=== PATIENT | female | born 1985 | race Caucasian/White ===

== ENCOUNTER 2017-06-07 15:37 | Emergency (ER) | payer SELFPAY ==
[~2017-06-07] VITALS: Ht 162.6 cm; Wt 60.7 kg
[2017-06-07 16:23] LABS: HEMATOCRIT 43.4 % (36.0-46.0); HEMOGLOBIN 15.1 G/DL (11.9-15.5); MCH 30.6 PG (29.0-34.0); MCHC 34.8 G/DL (30.0-36.0); MCV 87.9 FL (83-99); PLATELET COUNT 293 K/uL (156-360); RBC DIS.WIDTH-CV 12.6 % (11.8-14.6); RBC DIS.WIDTH-SD 40.5 % (39-53); RED BLOOD COUNT 4.94 M/uL (3.80-5.20)
[2017-06-07 16:34] LABS: ALBUMIN 4.2 g/dL (3.2-4.8); CHLORIDE 102 mEq/L (99-109); POTASSIUM 3.4 mEq/L (3.7-5.4); SODIUM 137 mEq/L (136-147)
[2017-06-07 16:37] LABS: GLUCOSE 99 mg/dL (70-99); TOTAL PROTEIN 7.4 g/dL (6.4-8.3)
[2017-06-07 16:39] LABS: TOTAL BILIRUBIN 0.5 mg/dL (0.0-1.0)
[2017-06-07 16:40] LABS: ALKALINE PHOSPHATASE 88 IU/L (3-129); CREATININE 0.8 mg/dL (0.6-1.3); GFR ESTIMATE (CALCULATED) > 59 mL/min/
[2017-06-07 16:41] LABS: APPEARANCE SL.HAZY ((CLEAR)); BILIRUBIN NEGATIVE; BLOOD SMALL; COLOR YELLOW ((YELLOW)); GLUCOSE (STRIP) NEGATIVE; KETONES 20; LEUKOCYTES NEGATIVE; NITRITE NEGATIVE; PROTEIN (STRIP) 30; SPECIFIC GRAVITY 1.024 (1.000-1.030); UROBILINOGEN 0.2 MG/DL (0.2-1.0)
[2017-06-07 16:41] LABS: UREA NITROGEN (BUN) 16 mg/dL (9-23)
[2017-06-07 16:42] LABS: AST (GOT) 14 IU/L (2-34)
[2017-06-07 16:43] LABS: ALT (GPT) 11 IU/L (3-49)
[2017-06-07 16:44] LABS: LIPASE 24 U/L (1.0-51.0)
[2017-06-07 16:50] LABS: BACTERIA RARE /HPF; EPITHELIAL CELLS 1+ /HPF; HYALINE CASTS 0-5 /LPF; MUCUS 1+ /LPF; RED BLOOD CELLS 0-5 /HPF (0-5); WHITE BLOOD CELLS 0-5 /HPF (0-5)
[2017-06-07 16:50] LABS: QUANTITATIVE HCG < 4.0 MIU/ML
[2017-06-07] MEDS ORDERED: PHENERGAN12.5 MG PR (19:03)
[2017-06-07] MEDS ORDERED: LEVSIN0.125 MG PO (19:03)
[2017-06-07 19:23] VITALS: BP 125/85
== END 2017-06-07 19:27 | disposition home or self-care (01) ==
LOC: EME 15:37
PROVIDERS: Nurse Practitioner Family
DX: R10.13 Epigastric pain (principal); R11.2 Nausea with vomiting, unspecified; Z87.442 Personal history of urinary calculi
CPT/HCPCS: 76705; 80053; 81003; 83690; 84702; 85027; 99281; 99284